=== PATIENT | female | born 1940 | race Caucasian/White ===

== ENCOUNTER 2020-05-20 06:25 | Day surgery (SDC) | payer MEDICARE ==
[2020-05-17 14:01] LABS: BASOPHILS % (AUTO) 0.7 % (0.0-5.0); EOSINOPHILS % (AUTO) 3.6 % (0.0-8.0); HEMATOCRIT 35.1 % (36-48); LYMPHOCYTES % (AUTO) 23.9 % (21.0-51.0); MEAN CORPUSCULAR HEMOGLOBIN 31.6 pg (27.0-33.0); MEAN CORPUSCULAR HGB CONC 31.9 g/dL (32.0-36.0); MEAN CORPUSCULAR VOLUME 99.2 fL (79-99); MONOCYTES % (AUTO) 7.7 % (3.0-13.0); NEUTROPHILS % (AUTO) 63.4 % (40.0-77.0); PLATELET COUNT (AUTO) 193 K/uL (130-400); RED BLOOD CELL COUNT(AUTO) 3.54 MIL/uL (4.00-5.50); WHITE BLOOD COUNT (AUTO) 8.3 K/uL (4.8-10.8)
[2020-05-17 14:13] LABS: CREATININE 1.6 mg/dL (0.5-1.5); POTASSIUM 4.4 mmol/L (3.5-5.1)
[2020-05-19 10:25] VITALS: BP 162/82
[2020-05-20] VITALS (16 sets, daily range): BP systolic 125–155; BP diastolic 52–83
[~2020-05-20] VITALS: Ht 151.1 cm; Wt 72.7 kg
[~2020-05-20 06:25] MED LIST: ALLO100T PO; APIX5TAB PO; ATOR40TA69 PO; CALC-1038 PO; COLC0.6C3 PO; DONE10TA43 PO; FERROUS SULFATE PO; FURO20TA4 PO; FURO40TA5 PO; INSLAN SQ; METO-391 PO; METO50TA9 PO; MIRT-72 PO; MIRT30TA6 PO; MVIT PO; OMEP40CA13 PO; SITA25TA5 PO; TAMO20TA4 PO
[2020-05-20] MEDS ORDERED: SODIUM CHLORIDE 0.9% 1000ML 1,000 ML IV ONE (07:01)
[2020-05-20] MEDS: CEFTRIAXONE SODIUM 1 GM IVP ONE ×2 (07:12→08:00)
[2020-05-20] MEDS ORDERED: IOHEXOL-350 50ML VIAL IV ONE (07:23)
[2020-05-20] MEDS ORDERED: SUCCINYLCHOLINE 200MG/10ML SYR ONE (07:51)
[2020-05-20] MEDS ORDERED: DEXAMETHASONE SOD PHOSPHATE 10MG/ML 1ML VIAL ONE (07:51)
[2020-05-20] MEDS ORDERED: LIDOCAINE PF 2% 5ML ABBOJECT ONE (07:51)
[2020-05-20] MEDS ORDERED: ONDANSETRON HCL 4 MG/2 ML VIAL ONE (07:52)
[2020-05-20] MEDS ORDERED: FENTANYL CITRATE PF 50 MCG/1 ML 2ML VIAL ONE (07:52)
[2020-05-20] MEDS ORDERED: MIDAZOLAM HCL 1 MG/ML 2ML VIAL ONE (07:52)
[2020-05-20] MEDS ORDERED: PROPOFOL 10 MG/ML 20ML VIAL IV ONE (07:52)
[2020-05-20] MEDS ORDERED: EPHEDRINE SULFATE 50 MG/ML AMPULE ONE (08:10)
[2020-05-20] MEDS ORDERED: GLYCOPYRROLATE 1 MG/5 ML SYRINGE ONE (08:15)
[2020-05-20] MEDS ORDERED: PHENAZOPYRIDINE HCL 200 MG TABLET ONE (09:43)
== END 2020-05-20 10:15 | disposition home or self-care (01) ==
LOC: DAH 06:25
PROVIDERS: ATTEND Urology
DX: C67.6 Malignant neoplasm of ureteric orifice (principal); Z20.822 Contact with and (suspected) exposure to COVID-19; E11.22 Type 2 diabetes mellitus with diabetic chronic kidney disease; I12.9 Hypertensive chronic kidney disease with stage 1 through stage 4 chronic kidney disease, or unspecified chronic kidney disease; N18.9 Chronic kidney disease, unspecified; I25.10 Atherosclerotic heart disease of native coronary artery without angina pectoris; E66.01 Morbid (severe) obesity due to excess calories; K21.9 Gastro-esophageal reflux disease without esophagitis; Z98.890 Other specified postprocedural states; Z90.89 Acquired absence of other organs; Z95.5 Presence of coronary angioplasty implant and graft; Z79.01 Long term (current) use of anticoagulants; Z79.899 Other long term (current) drug therapy; Z87.891 Personal history of nicotine dependence
CPT/HCPCS: 36415; 52234; 52332; 74420; 80048; 82948 ×2; 85025; 88307; 93005 ×2; A4215; A4221; A4222; A4223; A4344; A4358 ×2; A4510; A4600; A4663; A5113; A6260; C1758; C1769; C2617; C9803; J0330; J0696; J1100; J2001; J2250; J2405; J2704; J3010; J3490 ×2; J7030; Q9967; U0003

== ENCOUNTER 2020-05-21 06:17 | Emergency (ER) | payer MEDICARE ==
[~2020-05-21 06:17] MED LIST changes: -APIX5TAB PO
== END 2020-05-21 07:10 | disposition home or self-care (01) ==
LOC: EDH 06:17
DX: T83.021A Displacement of indwelling urethral catheter, initial encounter (principal); I10 Essential (primary) hypertension; E11.9 Type 2 diabetes mellitus without complications; E78.5 Hyperlipidemia, unspecified; J44.9 Chronic obstructive pulmonary disease, unspecified; F03.90 Unspecified dementia, unspecified severity, without behavioral disturbance, psychotic disturbance, mood disturbance, and anxiety; Y83.8 Other surgical procedures as the cause of abnormal reaction of the patient, or of later complication, without mention of misadventure at the time of the procedure; Y92.89 Other specified places as the place of occurrence of the external cause

== ENCOUNTER → 2020-06-14 | Outpatient (CLI) | payer MEDICARE | END | disposition home or self-care (01) | LOC: RAH 13:44 | PROVIDERS: ATTEND Internal Medicine | DX: J98.4 Other disorders of lung (principal); J06.9 Acute upper respiratory infection, unspecified; R93.89 Abnormal findings on diagnostic imaging of other specified body structures | CPT/HCPCS: 71250 ==

== ENCOUNTER 2020-07-22 07:16 | Day surgery (SDC) | payer MEDICARE ==
[2020-07-19 11:25] VITALS: BP 135/69
[2020-07-19 11:52] LABS: BASOPHILS % (AUTO) 0.9 % (0.0-5.0); LYMPHOCYTES % (AUTO) 21.1 % (21.0-51.0); MEAN CORPUSCULAR HEMOGLOBIN 31.5 pg (27.0-33.0); MEAN CORPUSCULAR HGB CONC 32.1 g/dL (32.0-36.0); MEAN CORPUSCULAR VOLUME 97.9 fL (79-99); MONOCYTES % (AUTO) 7.6 % (3.0-13.0); NEUTROPHILS % (AUTO) 65.1 % (40.0-77.0); PLATELET COUNT (AUTO) 194 K/uL (130-400); RED BLOOD CELL COUNT(AUTO) 3.37 MIL/uL (4.00-5.50); RED CELL DISTRIBUTION WIDTH 13.2 % (11.0-15.5); WHITE BLOOD COUNT (AUTO) 6.9 K/uL (4.8-10.8)
[2020-07-19 12:13] LABS: CREATININE 1.9 mg/dL (0.5-1.5); POTASSIUM 4.9 mmol/L (3.5-5.1)
[2020-07-22] VITALS (16 sets, daily range): BP systolic 110–155; BP diastolic 36–78
[~2020-07-22 07:16] MED LIST changes: -FURO20TA4 PO; -MIRT-72 PO
[2020-07-22] MEDS ORDERED: SODIUM CHLORIDE 0.9% 1000ML 1,000 ML IV ONE (08:21)
[2020-07-22] MEDS ORDERED: IOHEXOL-350 50ML VIAL IV ONE (08:50)
[2020-07-22] MEDS: CEFTRIAXONE SODIUM 1 GM IVP SCH ×2 (10:37→12:35)
[2020-07-22] MEDS ORDERED: APIX2.5T PO (10:42)
[2020-07-22] MEDS ORDERED: MIDAZOLAM HCL 1 MG/ML 2ML VIAL ONE (12:18)
[2020-07-22] MEDS ORDERED: ONDANSETRON HCL 4 MG/2 ML VIAL ONE (12:18)
[2020-07-22] MEDS ORDERED: PROPOFOL 10 MG/ML 20ML VIAL IV ONE (12:18)
[2020-07-22] MEDS ORDERED: LIDOCAINE PF 2% 5ML ABBOJECT ONE (12:18)
[2020-07-22] MEDS ORDERED: SUCCINYLCHOLINE 200MG/10ML SYR ONE ×2 (12:18→12:23)
[2020-07-22] MEDS ORDERED: DEXAMETHASONE SOD PHOSPHATE 10MG/ML 1ML VIAL ONE (12:18)
[2020-07-22] MEDS ORDERED: FENTANYL CITRATE PF 50 MCG/1 ML 2ML VIAL ONE (12:19)
[2020-07-22] MEDS ORDERED: PHENYLEPHRINE HCL 10 MG/ML 1ML VIAL IV ONE (12:21)
[2020-07-22] MEDS ORDERED: PHENAZOPYRIDINE HCL 200 MG TABLET ONE (14:05)
== END 2020-07-22 15:05 | disposition home or self-care (01) ==
LOC: DAH 07:16
PROVIDERS: ATTEND Urology
DX: C67.9 Malignant neoplasm of bladder, unspecified (principal); I10 Essential (primary) hypertension; I25.10 Atherosclerotic heart disease of native coronary artery without angina pectoris; E11.9 Type 2 diabetes mellitus without complications; K21.9 Gastro-esophageal reflux disease without esophagitis; Z79.899 Other long term (current) drug therapy; Z20.822 Contact with and (suspected) exposure to COVID-19
CPT/HCPCS: 36415; 52234; 74018; 80048; 82948 ×2; 85025; 93005; A4215; A4221; A4222; A4223; A4344; A4354; A4358; A4510; A4663; A6260; C1758; C1769; C9803; J0330 ×2; J0696; J1100; J2001; J2250; J2370; J2405; J2704; J3010; J7030; U0003; Q9967